=== PATIENT | male | born 2000 | race Caucasian/White ===

== ENCOUNTER 2023-02-26 08:06 | Emergency (ER) | payer OTHER, SELFPAY ==
[2023-02-26] VITALS (12 sets, daily range): BP systolic 111–147; BP diastolic 59–92; PULSE 70–130; RESP 18–22; TEMP 36.8; O2SAT 94–97; BMI 36.9
--- NOTE | 2023-02-26 08:33 | ED.URI ---
HPI - URI/Sore Throat General Chief Complaint: Fever Stated Complaint: para tonsil abcess Time Seen by Provider: 02/26/23 08:21 Source: patient Mode of arrival: Ambulatory History of Present Illness HPI Narrative: Patient is a healthy 22-year-old male who presents with 2-3 days of sore throat. He is had fever body aches and chills. He is able to swallow but it hurts. He denies any chest pain or shortness of breath. He has been taking DayQuil and NyQuil. He took 800 mg of ibuprofen at 6:00 a.m.. He is had fevers as high as 101, but AFib here. He is noted to be quite tachycardic heart rate in the 30s Related Data Previous Rx's Medication Instructions Recorded amoxicillin 500 mg capsule 500 mg PO BID #20 caps 02/26/23 Allergies Allergy/AdvReac Type Severity Reaction Status Date / Time No Known Drug Allergies Allergy Verified 02/26/23 08:54 Review of Systems Review of Systems ROS Unobtainable: All systems reviewed & are unremarkable except as noted in HPI and below Patient History Social History Smoking Status: Never smoker Smoking Status: Never smoker alcohol intake frequency: other Substance Use Type: does not use Exam Initial Vital Signs Initial Vital Signs: Vital Signs Pulse Rate 130 H 02/26/23 08:11 Pulse Oximetry 96 02/26/23 08:11 GENERAL: Alert 22-year-old male HEENT: Head atraumatic,EOMI, pupils reactive, face symmetric, moist mucous membranes PHARYNX: Enlarged tonsils with exudate no uvula swelling or deviation no hard palate swelling CARDIOVASCULAR: Tachycardic regular RESPIRATORY: Breath sounds equal bilaterally, no wheezes rales or rhonchi. ABDOMEN: Soft, nontender. Normoactive bowel sounds all 4 quadrants. No guarding or rebound. EXTREMITIES: Normal range of motion, no clubbing or edema. Neurovascularly intact NEUROLOGICAL: Alert and oriented x4. SKIN: Slightly diaphoretic. Warm, dry, no laceration, no petechiae, no rashes or lesions. Course Orders Ordered: ED Orders 02/26/23 08:19 CBC Auto Diff [Complete Blood Count AUTO DIFF] Stat CMP [Comprehensive Metabolic Panel] Stat Strep Grp A by PCR Rapid Stat Throat Culture Stat 02/26/23 09:12 Covid-19 + FLU A/B + RSV - PCR Stat Discontinued Medications Dexamethasone (Dexamethasone 10 Mg/Ml Vial) 10 mg IV NOW ONE Stop: 02/26/23 08:34 Last Admin: 02/26/23 08:55 Dose: 10 mg Documented By: RB Sodium Chloride (Normal Saline 0.9%) 1,000 mls @ 1,000 mls/hr IV BOLUS ONE Stop: 02/26/23 09:32 Last Infusion: 02/26/23 10:25 Dose: 0 mls/hr Documented By: Infusion: 02/26/23 09:47 Dose: 999 mls/hr Documented By: Admin: 02/26/23 08:56 Dose: 799 mls/hr Documented By: RB Ampicillin Sodium/Sulbactam (Sodium 3 gm/ Sodium Chloride) 100 mls @ 200 mls/hr IV NOW ONE Stop: 02/26/23 08:34 Last Infusion: 02/26/23 09:46 Dose: 0 mls/hr Documented By: Admin: 02/26/23 08:56 Dose: 200 mls/hr Documented By: RB Vital Signs Vital signs: Vital Signs - 8 hr 02/26/23 08:22 02/26/23 10:33 02/26/23 10:33 Temperature 98.3 F Pulse Rate 120 H 94 H 70 Respiratory Rate 20 18 22 Blood Pressure 147/92 H 117/59 L 147/72 H Pulse Oximetry 97 97 96 Oxygen Delivery Method Room Air Room Air Room Air 02/26/23 08:11 02/26/23 08:12 02/26/23 08:12 Temperature Pulse Rate 130 H 126 H Respiratory Rate Blood Pressure 147/92 H Pulse Oximetry 96 96 Oxygen Delivery Method 02/26/23 08:30 02/26/23 08:30 02/26/23 08:43 Temperature Pulse Rate 106 H Respiratory Rate Blood Pressure 137/66 124/64 Pulse Oximetry 95 Oxygen Delivery Method 02/26/23 08:43 02/26/23 09:00 02/26/23 09:00 Temperature Pulse Rate 106 H 105 H Respiratory Rate Blood Pressure 120/72 Pulse Oximetry 94 94 Oxygen Delivery Method 02/26/23 09:20 02/26/23 09:20 02/26/23 09:30 Temperature Pulse Rate 94 H 95 H Respiratory Rate Blood Pressure 116/71 Pulse Oximetry 95 96 Oxygen Delivery Method 02/26/23 09:40 02/26/23 09:40 02/26/23 10:00 Temperature Pulse Rate 98 H Respiratory Rate Blood Pressure 111/77 126/74 Pulse Oximetry 94 Oxygen Delivery Method 02/26/23 10:00 02/26/23 10:20 02/26/23 10:20 Temperature Pulse Rate 98 H 102 H Respiratory Rate Blood Pressure 117/59 L Pulse Oximetry 94 94 Oxygen Delivery Method MDM - URI/Sore Throat Lab Data 02/26/23 08:19 02/26/23 08:19 Labs: Lab Results 02/26/23 02/26/23 02/26/23 Range/Units 08:19 08:19 08:19 WBC 14.0 H (4.5-11.0) X10^3/uL RBC 5.04 (4.5-5.9) X10^6/uL Hgb 15.4 (13.5-17.5) g/dL Hct 44.3 (41-53) % MCV 87.7 (80-100) fL MCH 30.5 (26-34) PG MCHC 34.8 (30-36) % RDW 12.9 (11.6-14.8) % Plt Count 201 (150-400) X10^3/uL Neut % (Auto) 75.0 (50-75) % Lymph % (Auto) 8.9 L (25-40) % [place] % (Auto) 15.6 H (3-14) % Eos % (Auto) 0.1 L (2-4) % Baso % (Auto) 0.4 (0-2) % Neut # (Auto) 51705 H (0534-7382) /uL Lymph # (Auto) 1300 (9835-9739) /uL [place] # (Auto) 2200 H (0-900) /uL Eos # (Auto) 0 (0-450) /uL Baso # (Auto) 100 (0-100) /uL Sodium 137 (137-145) mmol/L Potassium 4.0 (3.4-5.1) mmol/L Chloride 102 (98-107) mmol/L Carbon Dioxide 23 (22-32) mmol/L BUN 15 (9-20) mg/dL Creatinine 1.23 (0.66-1.25) mg/dL Estimated GFR > 60 (>60) mL/min BUN/Creatinine Ratio 12.2 (6-22) Glucose 119 H (70-100) mg/dL Calcium 9.3 (8.4-10.2) mg/dL Total Bilirubin 1.1 (0.2-1.3) mg/dL AST 45 (17-59) IU/L ALT 106 H (<50) IU/L Alkaline Phosphatase 61 (38-126) U/L Total Protein 8.8 H (6.3-8.2) g/dL Albumin 4.6 (3.5-5.0) g/dL Globulin 4.2 H (1.7-4.1) g/dL Albumin/Globulin Ratio 1.1 (1.0-2.8) SARS-CoV-2 (PCR) (Negative) Influenza A (RT-PCR) (NEGATIVE) Influenza B (RT-PCR) (NEGATIVE) RSV (PCR) (Negative) Group A Strep (PCR) Negative (Negative) 02/26/23 Range/Units 09:12 WBC (4.5-11.0) X10^3/uL RBC (4.5-5.9) X10^6/uL Hgb (13.5-17.5) g/dL Hct (41-53) % MCV (80-100) fL MCH (26-34) PG MCHC (30-36) % RDW (11.6-14.8) % Plt Count (150-400) X10^3/uL Neut % (Auto) (50-75) % Lymph % (Auto) (25-40) % [place] % (Auto) (3-14) % Eos % (Auto) (2-4) % Baso % (Auto) (0-2) % Neut # (Auto) (6240-9569) /uL Lymph # (Auto) (9635-6909) /uL [place] # (Auto) (0-900) /uL Eos # (Auto) (0-450) /uL Baso # (Auto) (0-100) /uL Sodium (137-145) mmol/L Potassium (3.4-5.1) mmol/L Chloride (98-107) mmol/L Carbon Dioxide (22-32) mmol/L BUN (9-20) mg/dL Creatinine (0.66-1.25) mg/dL Estimated GFR (>60) mL/min BUN/Creatinine Ratio (6-22) Glucose (70-100) mg/dL Calcium (8.4-10.2) mg/dL Total Bilirubin (0.2-1.3) mg/dL AST (17-59) IU/L ALT (<50) IU/L Alkaline Phosphatase (38-126) U/L Total Protein (6.3-8.2) g/dL Albumin (3.5-5.0) g/dL Globulin (1.7-4.1) g/dL Albumin/Globulin Ratio (1.0-2.8) SARS-CoV-2 (PCR) Negative (Negative) Influenza A (RT-PCR) Flu a negative (NEGATIVE) Influenza B (RT-PCR) Flu b negative (NEGATIVE) RSV (PCR) Negative (Negative) Group A Strep (PCR) (Negative) MDM Narrative Medical decision making narrative: The patient 22-year-old male concern for peritonsillar abscess. At this time I do not see evidence of peritonsillar abscess or retropharyngeal abscess he does have quite enlarged with exudate, high suspicion for strep even though rapid strep is negative. Backup culture is also sent. Respiratory panel is negative. Blood work shows mild leukocytosis left shift of 14. He is given fluids Unasyn and dexamethasone. Discharge Plan Departure Patient Disposition: Home Clinical Impression: Pharyngitis Instructions: DI for Strep Throat Activity Restrictions/Additional Instructions: *You have been diagnosed with pharyngitis *What to do: At this time your rapid strep is negative however I have a high suspicion that you do have strep. Increase fluids as tolerated *Continue to take medications as directed Amoxicillin 500 mg twice a day for 10 days Tylenol 1000 mg every 6 hours for blyj-zm-nulxkjor pain Motrin 800 mg every 8 hours if needed for mild pain (careful with DayQuil and NyQuil they both have acetaminophen or Motrin in it, recommend not mixing) *Follow up with your primary care provider in 2-3 days or call [phone] *Return to ER if you should have increased difficulty swallowing breathing not tolerating fluids [or] any new, worsening or concerning symptoms Prescriptions: New amoxicillin 500 mg capsule 500 mg PO BID Qty: 20 0RF Referrals: Provider,Debbie WEAVER [Primary Care Provider] - Stand Alone Forms: Patient Portal/API
[2023-02-26 08:45] LABS: Strep Grp A by PCR Rapid Negative (Negative)
[2023-02-26 08:51] LABS: Add Manual Diff / Slide Review NO; Basophils Absolute Auto 100 /uL (0-100); Basophils Percent Auto 0.4 % (0-2); Eosinophils Absolute Auto 0 /uL (0-450); Eosinophils Percent Auto 0.1 % (2-4); Hematocrit 44.3 % (41-53); Hemoglobin 15.4 g/dL (13.5-17.5); Lymphocytes Absolute Auto 1300 /uL (1100-4500); Lymphocytes Percent Auto 8.9 % (25-40); Mean Corpuscular HGB Conc 34.8 % (30-36); Mean Corpuscular Hemoglobin 30.5 PG (26-34); Mean Corpuscular Volume 87.7 fL (80-100); Monocytes Absolute Auto 2200 /uL (0-900); Monocytes Percent Auto 15.6 % (3-14); Neutrophils Absolute Auto 10500 /uL (1500-7000); Platelet Count 201 X10^3/uL (150-400); Red Blood Cell Count 5.04 X10^6/uL (4.5-5.9); Red Cell Distribution Width 12.9 % (11.6-14.8)
[2023-02-26] MEDS: DEXAMETHASONE 10 MG/ML VIAL IV (08:55)
[2023-02-26] MEDS: SODIUM CHLORIDE 0.9% 1,000 ML 799 ML IV (08:56)
[2023-02-26] MEDS: AMPICILLIN/SULBACTAM 3 GM 3 GM in SODIUM CHLORIDE 0.9% 100 ML IV (08:56)
[2023-02-26 09:03] LABS: Alanine Aminotransferase 106 IU/L (<50); Albumin 4.6 g/dL (3.5-5.0); Albumin Globulin Ratio 1.1 (1.0-2.8); Alkaline Phosphatase 61 U/L (38-126); Aspartate Aminotransferase 45 IU/L (17-59); BUN Creatinine Ratio 12.2 (6-22); Bilirubin Total 1.1 mg/dL (0.2-1.3); Blood Urea Nitrogen 15 mg/dL (9-20); Calcium 9.3 mg/dL (8.4-10.2); Carbon Dioxide 23 mmol/L (22-32); Chloride 102 mmol/L (98-107); Estimated Glomerular Filt Rate > 60 mL/min (>60); Globulin 4.2 g/dL (1.7-4.1); Glucose 119 mg/dL (70-100); HEMOLYSIS < 15 (0-50); Sodium 137 mmol/L (137-145); Total Protein 8.8 g/dL (6.3-8.2)
[2023-02-26 10:08] LABS: Influenza A - CEPHEID Flu A NEGATIVE (NEGATIVE); Influenza B - CEPHEID Flu B NEGATIVE (NEGATIVE); Respiratory Syncytial Virus Negative (Negative)
[2023-02-26 10:10] LABS: COVID-19 CEPHEID 4-PLEX PCR Negative (Negative)
== END 2023-02-26 10:34 | disposition home or self-care (01) ==
PROVIDERS: Emergency Provider Emergency Medicine
DX: J02.9 Acute pharyngitis, unspecified (principal); F17.200 Nicotine dependence, unspecified, uncomplicated
CPT/HCPCS: 0241U; 36415; 80053; 85025; 87070; 87077; 87147; 87651; 96365; 96375; 99283; 99284; J0295; J1100

== ENCOUNTER 2023-02-27 22:42 | Emergency (ER) | payer OTHER, SELFPAY ==
--- NOTE | 2023-02-27 22:45 | ED_ITS ---
HPI - General Adult General Chief complaint: Upper Respiratory Symptoms Stated complaint: swollen tonsils, getting hard to breathe Time Seen by Provider: 02/27/23 22:45 History of Present Illness HPI narrative: 22-year-old male smoker presents with his significant other and a chief compl aint of severe throat pain. He had recently been seen and evaluated due to large swollen tonsils and though his rapid strep test was negative a culture was sent and he was started on antibiotics given his convincing presentation for a bacterial infection. He is had subjective fever and despite taking Tylenol and Motrin routinely frequently is having sufficient throat pain that he has not been eating and drinking as much. He is controlling his secretions and not having any difficulty breathing. He denies nausea or vomiting Related Data Previous Rx's Medication Instructions Recorded amoxicillin 500 mg capsule 500 mg PO BID #20 caps 02/26/23 acetaminophen 120 mg-codeine 12 5 ml PO Q8H PRN pain #500 mL 02/28/23 mg/5 mL (5 mL) oral solution Allergies Allergy/AdvReac Type Severity Reaction Status Date / Time No Known Drug Allergies Allergy Verified 02/26/23 08:54 Review of Systems Review of Systems Narrative: GENERAL: See HPI HEENT: See HPI RESPIRATORY: Denies dyspnea, cough, wheezing, hemoptysis, sputum. CARDIOVASCULAR: Denies chest pain, palpitations, orthopnea, edema, GASTROINTESTINAL: Denies nausea, vomiting, abdominal pain, diarrhea, constipation, melena. : Denies dysuria, frequency, incontinence, hematuria, urinary retention. MUSCULOSKELETAL: denies weakness, joint pain, or bony pain SKIN: Denies rash, skin lesions, or other NEUROLOGIC: Denies weakness, headache, numbness, change in speech, confusion, seizures, incoordination. PSYCHIATRIC: No concerning psychosocial issues. 12 point review of systems is negative except for those stated above Patient History Social History Smoking Status: Current some day smoker Smoking Status: Never smoker alcohol intake frequency: other Substance Use Type: does not use Exam Narrative Exam Narrative: GENERAL: [22] year old patient appears stated age. Well-developed patient, in mild distress. HEAD: Atraumatic. Normocephalic. EYES: Pupils equal round and reactive. Extraocular motions intact. No scleral icterus. No injection or drainage. ENT:Dry mucous membranes. Nose without bleeding, purulent drainage. Tonsillar swelling, exudate, erythema. No uvular pointing, or obvious evidence of abscess NECK: Trachea midline. Tender anterior nodes CARDIOVASCULAR: tachycardic but regular rhythm without murmurs, gallops, or rubs. RESPIRATORY: Clear to auscultation. Breath sounds equal bilaterally. No wheezes, rales, or rhonchi. GASTROINTESTINAL: Abdomen soft, non-tender, nondistended. EXTREMITIES: No edema or joint tenderness. BACK: Nontender without deformity or crepitance. No flank tenderness. NEURO: AOx3. SKIN: No rash or erythema of visible areas Initial Vital Signs Initial Vital Signs: Vital Signs Temperature 100.6 F H 02/27/23 22:47 Pulse Rate 123 H 02/27/23 22:47 Respiratory Rate 22 02/27/23 22:47 Blood Pressure 132/79 02/27/23 22:47 Pulse Oximetry 99 02/27/23 22:47 Oxygen Delivery Method Room Air 02/27/23 22:47 Course Orders Ordered: ED Orders 02/27/23 23:05 Complete Blood Count AUTO DIFF Stat Comprehensive Metabolic Panel Stat Lactate (Lactic Acid) Stat Monotest Stat 02/27/23 23:06 CT soft tissue neck w con Stat 02/27/23 23:55 Blood Culture Stat Sodium Chloride (Normal Saline 0.9%) 1,000 mls @ 1,000 mls/hr IV BOLUS ONE Stop: 02/28/23 01:36 Last Admin: 02/28/23 00:42 Dose: 1,000 mls/hr Discontinued Medications Acetaminophen/Codeine Phosphate (Acetaminophen/Codeine Soln 5 Ml Solution) 10 ml PO NOW ONE Stop: 02/28/23 00:38 Last Admin: 02/28/23 00:42 Dose: 10 ml Sodium Chloride (Normal Saline 0.9%) 1,000 mls @ 1,000 mls/hr IV BOLUS ONE Stop: 02/28/23 00:05 Last Admin: 02/27/23 23:21 Dose: 1,000 mls/hr Documented By: DANIEL Ketorolac Tromethamine (Ketorolac 30 Mg/Ml Vial) 15 mg IV NOW ONE Stop: 02/27/23 23:07 Last Admin: 02/27/23 23:21 Dose: 15 mg Documented By: DANIEL Vital Signs Vital signs: Vital Signs - 8 hr 02/27/23 22:47 02/28/23 00:27 02/28/23 00:30 Temperature 100.6 F H Pulse Rate 123 H 109 H 110 H Respiratory Rate 22 Blood Pressure 132/79 Pulse Oximetry 99 93 95 Oxygen Delivery Method Room Air 02/28/23 01:00 Temperature Pulse Rate 105 H Respiratory Rate 16 Blood Pressure Pulse Oximetry 98 Oxygen Delivery Method Medical Decision Making Lab Data 02/27/23 23:05 02/27/23 23:05 Labs: Lab Results 02/27/23 02/27/23 02/27/23 Range/Units 23:05 23:05 23:05 WBC 10.3 (4.5-11.0) X10^3/uL RBC 4.90 (4.5-5.9) X10^6/uL Hgb 15.0 (13.5-17.5) g/dL Hct 42.9 (41-53) % MCV 87.6 (80-100) fL MCH 30.7 (26-34) PG MCHC 35.0 (30-36) % RDW 12.8 (11.6-14.8) % Plt Count 208 (150-400) X10^3/uL Neut % (Auto) 76.1 H (50-75) % Lymph % (Auto) 9.5 L (25-40) % [place] % (Auto) 14.1 H (3-14) % Eos % (Auto) 0.1 L (2-4) % Baso % (Auto) 0.2 (0-2) % Neut # (Auto) 7800 H (9245-0626) /uL Lymph # (Auto) 1000 L (3425-8221) /uL [place] # (Auto) 1400 H (0-900) /uL Eos # (Auto) 0 (0-450) /uL Baso # (Auto) 0 (0-100) /uL Sodium 138 (137-145) mmol/L Potassium 3.9 (3.4-5.1) mmol/L Chloride 101 (98-107) mmol/L Carbon Dioxide 25 (22-32) mmol/L BUN 18 (9-20) mg/dL Creatinine 1.40 H (0.66-1.25) mg/dL Estimated GFR > 60 (>60) mL/min BUN/Creatinine Ratio 12.9 (6-22) Glucose 105 H (70-100) mg/dL Lactate 1.3 (0.7-2.1) mmol/L Calcium 9.2 (8.4-10.2) mg/dL Total Bilirubin 0.9 (0.2-1.3) mg/dL AST 69 H (17-59) IU/L ALT 115 H (<50) IU/L Alkaline Phosphatase 61 (38-126) U/L Total Protein 8.8 H (6.3-8.2) g/dL Albumin 4.5 (3.5-5.0) g/dL Globulin 4.3 H (1.7-4.1) g/dL Albumin/Globulin Ratio 1.0 (1.0-2.8) Monoscreen (Negative) 02/27/23 Range/Units 23:05 WBC (4.5-11.0) X10^3/uL RBC (4.5-5.9) X10^6/uL Hgb (13.5-17.5) g/dL Hct (41-53) % MCV (80-100) fL MCH (26-34) PG MCHC (30-36) % RDW (11.6-14.8) % Plt Count (150-400) X10^3/uL Neut % (Auto) (50-75) % Lymph % (Auto) (25-40) % [place] % (Auto) (3-14) % Eos % (Auto) (2-4) % Baso % (Auto) (0-2) % Neut # (Auto) (0663-3312) /uL Lymph # (Auto) (4066-2172) /uL [place] # (Auto) (0-900) /uL Eos # (Auto) (0-450) /uL Baso # (Auto) (0-100) /uL Sodium (137-145) mmol/L Potassium (3.4-5.1) mmol/L Chloride (98-107) mmol/L Carbon Dioxide (22-32) mmol/L BUN (9-20) mg/dL Creatinine (0.66-1.25) mg/dL Estimated GFR (>60) mL/min BUN/Creatinine Ratio (6-22) Glucose (70-100) mg/dL Lactate (0.7-2.1) mmol/L Calcium (8.4-10.2) mg/dL Total Bilirubin (0.2-1.3) mg/dL AST (17-59) IU/L ALT (<50) IU/L Alkaline Phosphatase (38-126) U/L Total Protein (6.3-8.2) g/dL Albumin (3.5-5.0) g/dL Globulin (1.7-4.1) g/dL Albumin/Globulin Ratio (1.0-2.8) Monoscreen Negative (Negative) MDM Narrative Medical decision making narrative: [22] year old patient presents with ongoing throat pain, swollen tonsils Multiple etiologies for patient's symptoms considered including, but not limited to: [Streptococcal infection versus peritonsillar abscess versus retropharyngeal abscess versus other] Prior Charts reviewed in our EMR Primary Historian: patient Labs reviewed and interpreted by myself: Throat culture has returned demonstrates strep. No leukocytosis or left shift. Electrolytes unremarkable, slight increase in renal function consistent with clinical dehydration. Imaging reviewed: CT of the soft tissue of the neck does not demonstrate any abscess or airway compromise Patient's symptoms improved over duration of stay with above-stated therapies. Patient tolerating orals, no respiratory distress, vitals have improved. No abscess on imaging. Findings and discharge diagnosis discussed with patient/family followed by verbalization of understanding Return precautions discussed with patient/family whom verbalize understanding of diagnosis and plan Discharge Plan Departure Patient Disposition: Home Clinical Impression: Strep pharyngitis, Acute dehydration Instructions: DI for Strep Throat Activity Restrictions/Additional Instructions: *You have been diagnosed with [Group B Strep pharyngitis and dehydration ] *What to do: *Please continue to take your regular medications as directed. [x] New medication prescriptions sent to your pharmacy: [ [facility]] [ ] New medication written as a paper prescription [ ] No new medications given *Please follow up with your primary care provider in 2-3 days, call for an appointment. Let them know you were seen in the Emergency Department and that we ask that you be seen in follow up. We will electronically transmit a record of today's note if your PCP is in our system *Return to Emergency Department if you should have any new, worsening or co ncerning symptoms, such as [fever greater than 101 F, shaking chills, worsening pain, persistent vomiting or other bothersome symptoms] You have been prescribed a short course of narcotic medications. These are potentially dangerous and addictive medications that should be used carefully. While on these medications you cannot drive or operate heavy machinery. Additionally, you cannot sign legal documents or perform any duties such as this. Many people get constipated on narcotic medications so it would be advisable to discuss stool softeners with the pharmacist when you picking supervisor your prescription. Please understand that we cannot provide further refills of narcotics or controlled substances through the ED and your pain management will need to be through your Primary Care Provider Prescriptions: New acetaminophen-codeine 120 mg-12 mg /5 mL (5 mL) solution 5 ml PO Q8H PRN (Reason: pain) Qty: 500 0RF No Action amoxicillin 500 mg capsule 500 mg PO BID Qty: 20 0RF Referrals: ProviderDebbie [Primary Care Provider] - Stand Alone Forms: Patient Portal/API
[2023-02-27 22:47] VITALS: BP 132/79; PULSE 123; RESP 22; TEMP 38.1; O2SAT 99; BMI 36.9
--- NOTE | 2023-02-27 23:06 | DI.CT.S_ITS ---
PROCEDURE: CT SOFT TISSUE NECK W CON INDICATIONS: throat pain, trouble swallowing, secretions, breathing TECHNIQUE: After the administration of intravenous contrast, 3.0 mm axial sections acquired from the sella to the aortic arch. Additional oblique axial 3.0 mm sections acquired through the pharynx. 3 mm thick coronal and sagittal reformats were generated. For radiation dose reduction, the following was used: automated exposure control. COMPARISON: None. FINDINGS: Image quality: Excellent. Lymph nodes: Multiple bilateral enlarged lymph nodes are present the most prominent in the level 2A bilaterally. Left level 2A lymph node measures 2.1 cm. 7 mm left supraclavicular lymph node is present. Vessels: Visualized vasculature appears patent. Neck spaces: The oropharynx, nasopharynx, and pharynx demonstrate no mucosal lesions. There is bilateral tonsillar prominence without focal fluid collections. The vocal cords, false vocal cords, pyriform sinuses, epiglottis, vallecula, and tongue base all appear normal. Extramucosal spaces appear unremarkable. Glands: The parotid and submandibular glands appear normal. Thyroid gland is unremarkable. Miscellaneous: Visualized brain and orbits appear normal. Lung apices appear clear. Superficial soft tissues appear normal. Bones: No suspicious bony lesions. Visualized sinuses and mastoids appear unremarkable. IMPRESSION: Bilateral tonsillar prominence and bilateral neck adenopathy possibly related to infection or inflammation. No abscess. Recommend interval follow-up to document resolution and exclude presence of other underlying etiology such as malignancy including lymphoma. Dictated by: Nandini Cheng M.D. on 02/28/2023 at 0:17 Approved by: Nandini Cheng M.D. on 02/28/2023 at 0:19
[2023-02-27] MEDS: KETOROLAC 30 MG/ML VIAL 15 MG IV (23:21)
[2023-02-27] MEDS: SODIUM CHLORIDE 0.9% 1,000 ML 1000 ML IV (23:21)
[2023-02-27 23:22] LABS: Monotest Negative (Negative)
[2023-02-27 23:24] LABS: Add Manual Diff / Slide Review NO; Basophils Absolute Auto 0 /uL (0-100); Basophils Percent Auto 0.2 % (0-2); Eosinophils Absolute Auto 0 /uL (0-450); Eosinophils Percent Auto 0.1 % (2-4); Hematocrit 42.9 % (41-53); Lymphocytes Absolute Auto 1000 /uL (1100-4500); Lymphocytes Percent Auto 9.5 % (25-40); Mean Corpuscular Hemoglobin 30.7 PG (26-34); Mean Corpuscular Volume 87.6 fL (80-100); Monocytes Absolute Auto 1400 /uL (0-900); Monocytes Percent Auto 14.1 % (3-14); Neutrophils Absolute Auto 7800 /uL (1500-7000); Neutrophils Percent Auto 76.1 % (50-75); Platelet Count 208 X10^3/uL (150-400); Red Cell Distribution Width 12.8 % (11.6-14.8); White Blood Cell Count 10.3 X10^3/uL (4.5-11.0)
[2023-02-27 23:26] LABS: Lactate (Lactic Acid) 1.3 mmol/L (0.7-2.1)
[2023-02-27 23:27] LABS: Alanine Aminotransferase 115 IU/L (<50); Albumin 4.5 g/dL (3.5-5.0); Alkaline Phosphatase 61 U/L (38-126); Aspartate Aminotransferase 69 IU/L (17-59); BUN Creatinine Ratio 12.9 (6-22); Bilirubin Total 0.9 mg/dL (0.2-1.3); Blood Urea Nitrogen 18 mg/dL (9-20); Calcium 9.2 mg/dL (8.4-10.2); Carbon Dioxide 25 mmol/L (22-32); Chloride 101 mmol/L (98-107); Estimated Glomerular Filt Rate > 60 mL/min (>60); Globulin 4.3 g/dL (1.7-4.1); Glucose 105 mg/dL (70-100); HEMOLYSIS < 15 (0-50); Potassium 3.9 mmol/L (3.4-5.1); Sodium 138 mmol/L (137-145); Total Protein 8.8 g/dL (6.3-8.2)
[2023-02-28 00:27] VITALS: PULSE 109; O2SAT 93
[2023-02-28 00:30] VITALS: PULSE 110; O2SAT 95
[2023-02-28] MEDS: SODIUM CHLORIDE 0.9% 1,000 ML 1000 ML IV (00:42)
[2023-02-28] MEDS: ACETAMINOPHEN/CODEINE SOLN 5 ML SOLUTION 10 ML PO (00:42)
[2023-02-28 01:00] VITALS: PULSE 105; RESP 16; O2SAT 98
[2023-02-28 01:18] VITALS: BP 120/74
== END 2023-02-28 01:38 | disposition home or self-care (01) ==
PROVIDERS: Emergency Provider Emergency Medicine
DX: J02.0 Streptococcal pharyngitis (principal); E86.0 Dehydration
CPT/HCPCS: 36415; 70491; 80053; 83605; 85025; 86318; 87040; 96361; 96374; 99284; J1885; Q9967

== ENCOUNTER → 2024-11-09 08:48 | Outpatient (CLI) | payer OTHER, SELFPAY ==
--- NOTE | 2024-11-09 08:50 | DI.MRI.S_ITS ---
PROCEDURE: MR CERVICAL SPINE WO CON INDICATIONS: HX TRANSIENT BILAT UPPER EXT PARESTHESIAS,PAIN TECHNIQUE: Noncontrast sagittal T1 spin echo and T2 fast spin echo, sagittal STIR, foraminal oblique sagittal T2 fast spin echo, and axial gradient echo or T2 fast spin echo through the cervical spine. COMPARISON: None. FINDINGS: Image quality: Excellent. Alignment and Curvature: There is normal bony alignment. Bone Marrow: Marrow demonstrates normal overall signal. Spinal Cord: Visualized spinal cord has normal size and signal. No cerebellar tonsillar herniation. Paraspinous Soft Tissues: No paravertebral masses. Prevertebral soft tissues are normal in thickness. C2-C3: Normal appearance. C3-C4: Normal appearance. C4-C5: Mild chronic disc height loss and early anterior osteophyte. Mild disc bulge. No canal stenosis or foraminal stenosis. C5-C6: Diffuse disc bulge. Superimposed focal right paracentral disc protrusion impinging on the ventral horn of the right C6 nerve root in the right lateral recess. No foraminal stenosis on the right. On the left, there is uncovertebral joint hypertrophy and mild facet hypertrophy with moderate left foraminal narrowing. C6-C7: Normal appearance. C7-T1: Normal appearance. IMPRESSION: 1. Significant findings are centered at C5-C6. There is diffuse disc bulge with a superimposed focal right paracentral disc protrusion. There is impingement on the ventral horn of the right C6 nerve root in the right lateral recess. There is also moderate left foraminal narrowing. Dictated by: Angel Alvarez M.D. on 11/09/2024 at 10:01 Approved by: Angel Alvarez M.D. on 11/09/2024 at 10:08
== END ==
LOC: MRI 08:49
DX: M50.322 Other cervical disc degeneration at C5-C6 level (principal); M50.222 Other cervical disc displacement at C5-C6 level; M48.02 Spinal stenosis, cervical region; G58.9 Mononeuropathy, unspecified; R20.2 Paresthesia of skin
CPT/HCPCS: 72141

== ENCOUNTER → 2024-11-17 15:27 | Outpatient (CLI) | payer OTHER, SELFPAY ==
--- NOTE | 2024-11-17 15:28 | DI.MRI.S_ITS ---
PROCEDURE: MR WRIST LT WO CON INDICATIONS: CHRONIC HX BILAT HAND PAIN, PARETHESIAS TECHNIQUE: Noncontrast coronal proton density fast spin echo and T2 fast spin echo with fat saturation; coronal 3-D gradient echo, axial T1 spin echo and T2 fast spin echo with fat saturation, sagittal T1 spin echo through the wrist. COMPARISON: None. FINDINGS: Image quality: Excellent. Bones and cartilage: There is moderate marrow edema at the volar aspect of the lunate, with mild subchondral cystic changes, nonspecific. In addition, there is mild subchondral cystic changes in the dorsal aspect of the lunate, nonspecific. Carpal ligaments: The scapholunate and lunotriquetral ligaments appear intact. There is diffuse mild edema of the dorsal intercarpal ligaments, concerning for mild sprain. Triangular fibrocartilage complex: Partial-thickness tear of the central disc. Small full amount of fluid in the pre styloid recess. Tendons and soft tissues: Bowing of the flexor retinaculum with edema of the median nerve, raising concern for carpal tunnel syndrome. The flexor tendons are unremarkable. There is trace tenosynovitis of the 2nd extensor compartment, at the level of the proximal carpal row. Mild tendinosis of the extensor carpi ulnaris. Mild ulnar subluxation of the extensor carpi ulnaris, within the ulnar groove. 6 mm ganglion cyst dorsal to the trapezoid and capitate articulation (4:5). IMPRESSION: 1. Partial-thickness tear of the central disc. 2. Mild sprain of the dorsal intercarpal ligaments. 3. Moderate marrow edema of the volar aspect of the lunate with mild subchondral cystic changes, nonspecific. 4. Findings concerning for carpal tunnel syndrome. 5. Mild tendinosis and mild ulnar subluxation of the extensor carpi ulnaris, within the ulnar groove. 6. 6 mm ganglion cyst dorsal to the trapezoid and capitate articulation. Dictated by: Lisette Rowe M.D. on 11/17/2024 at 17:30 Approved by: Lisette Rowe M.D. on 11/17/2024 at 17:43
--- NOTE | 2024-11-17 15:29 | DI.MRI.S_ITS ---
PROCEDURE: MR HAND LT WO CON INDICATIONS: CHRONIC HX BILAT HAND PAIN, PARETHESIAS TECHNIQUE: Noncontrast coronal T1 spin echo and T2 fast spin echo with fat saturation, axial proton density fast spin echo and T2 fast spin echo with fat saturation, sagittal T1 spin echo and STIR through the hand and fingers. COMPARISON: None. FINDINGS: Image quality: Excellent. Bones: Mild subchondral cystic changes at the 5th metacarpal head, favoring degenerative. No acute fracture. No marrow edema. Interphalangeal joint(s): The accessory and proper collateral ligaments appear intact. The volar plate demonstrates normal morphology. The extensor central slips appear intact on sagittal images. Metacarpophalangeal joint(s): The accessory and proper collateral ligaments appear intact, as well as the volar plate and adjacent deep transverse metacarpal ligaments. The sagittal bands of the extensor ahumada appear normal. Extensor apparatus: The central slips insert normally on the middle phalangeal base. The conjoint and terminal tendons insert normally on the distal phalangeal bases. More proximal portions of the extensor tendons also appear normal. Flexor apparatus: The flexor digitorum superficialis and profundus tendons both appear intact. All annular and cruciform pulleys appear intact, without adjacent soft tissue edema. Soft tissues: Visualized muscles demonstrate normal bulk and internal signal. No intramuscular masses identified. No ganglion cysts. IMPRESSION: 1. Mild subchondral cystic changes at the 5th metacarpal head, favoring degenerative. Otherwise unremarkable exam. 2. Please refer to separate report regarding wrist finding. Dictated by: Lisette Rowe M.D. on 11/17/2024 at 17:25 Approved by: Lisette Rowe M.D. on 11/17/2024 at 17:30
--- NOTE | 2024-11-17 15:29 | DI.MRI.S_ITS ---
PROCEDURE: MR WRIST RT WO CON INDICATIONS: CHRONIC HX BILAT HAND PAIN, PARETHESIAS - right TECHNIQUE: Noncontrast coronal proton density fast spin echo and T2 fast spin echo with fat saturation; coronal 3-D gradient echo, axial T1 spin echo and T2 fast spin echo with fat saturation, sagittal T1 spin echo through the wrist. COMPARISON: [facility], MR, MR WRIST LT WO CON, 11/17/2024, 15:36. FINDINGS: Image quality: Limited evaluation given patient motion.. Bones and cartilage: Mild ulnar negative variance. There is mild subchondral marrow edema in the ulnar, proximal aspect of the lunate, raising concern for ulnar impingement syndrome. Additional mild subchondral marrow edema in the distal aspect of the lunate, nonspecific and may be degenerative. No acute fracture. Carpal ligaments: The scapholunate and lunotriquetral ligaments appear intact. In the absence of intra-articular contrast, the extrinsic carpal ligaments are not well identified. On sagittal images, the pisohamate ligament appears intact. Triangular fibrocartilage complex: Focal perforation of the central disc (07:43). Tendons and soft tissues: Bowing of the flexor retinaculum with edema of the median nerve, raising concern for carpal tunnel syndrome. The flexor tendons unremarkable. Trace tenosynovitis of the 1st and 2nd extensor compartment. There is mild tendinosis of the extensor carpi ulnaris, with mild ulnar subluxation within the ulnar groove. 1.2 cm ganglion cyst volar to the trapezoid. 8 mm ganglion cyst radial to the scaphoid waist. Small amount of fluid is seen in the pre styloid recess. IMPRESSION: 1. Focal perforation of the central disc of the triangular fibrocartilage. 2. Ulnar negative variance with findings concerning for ulnar impingement syndrome. 3. Findings concerning for carpal tunnel syndrome. 4. Mild tendinosis with mild ulnar subluxation of the extensor carpi ulnaris within the ulnar groove. 5. Two ganglion cysts, measuring up to 1.2 cm. Dictated by: Lisette Rowe M.D. on 11/17/2024 at 17:43 Approved by: Lisette Rowe M.D. on 11/17/2024 at 17:52
--- NOTE | 2024-11-17 15:29 | DI.MRI.S_ITS ---
PROCEDURE: MR HAND RT WO CON INDICATIONS: CHRONIC HX BILAT HAND PAIN, PARETHESIAS right TECHNIQUE: Noncontrast coronal T1 spin echo and T2 fast spin echo with fat saturation, axial proton density fast spin echo and T2 fast spin echo with fat saturation, sagittal T1 spin echo and STIR through the hand and fingers. COMPARISON: None. FINDINGS: Image quality: Excellent. Bones: The bones are normally aligned, without marrow contusions or fractures. No intra-osseous lesions. Interphalangeal joint(s): The accessory and proper collateral ligaments appear intact. The volar plate demonstrates normal morphology. The extensor central slips appear intact on sagittal images. Metacarpophalangeal joint(s): The accessory and proper collateral ligaments appear intact, as well as the volar plate and adjacent deep transverse metacarpal ligaments. The sagittal bands of the extensor ahumada appear normal. Extensor apparatus: The central slips insert normally on the middle phalangeal base. The conjoint and terminal tendons insert normally on the distal phalangeal bases. More proximal portions of the extensor tendons also appear normal. Flexor apparatus: The flexor digitorum superficialis and profundus tendons both appear intact. All annular and cruciform pulleys appear intact, without adjacent soft tissue edema. Soft tissues: Visualized muscles demonstrate normal bulk and internal signal. No intramuscular masses identified. No ganglion cysts. IMPRESSION: Unremarkable MRI of the right hand. Please refer to dedicated wrist MR report regarding wrist finding. Dictated by: Lisette Rowe M.D. on 11/17/2024 at 18:00 Approved by: Lisette Rowe M.D. on 11/17/2024 at 18:03
== END ==
LOC: MRI 15:28
DX: G58.9 Mononeuropathy, unspecified (principal); R20.2 Paresthesia of skin; S63.592A Other specified sprain of left wrist, initial encounter; M67.431 Ganglion, right wrist; M67.432 Ganglion, left wrist; S63.071A Subluxation of distal end of right ulna, initial encounter; S63.072A Subluxation of distal end of left ulna, initial encounter
CPT/HCPCS: 73218; 73221